=== PATIENT | male | born 1985 | race Caucasian/White ===

== ENCOUNTER 2017-06-29 02:41 | Emergency (ER) | payer BC ==
[~2017-06-29] VITALS: Ht 185.4 cm; Wt 86.2 kg
[2017-06-29 02:49] VITALS: BP_SYST 140
== END 2017-06-29 03:05 | disposition home or self-care (01) ==
LOC: SED 02:41
DX: J01.90 Acute sinusitis, unspecified (principal); J02.9 Acute pharyngitis, unspecified; R03.0 Elevated blood-pressure reading, without diagnosis of hypertension
CPT/HCPCS: 99283

== ENCOUNTER 2017-09-30 22:12 | Emergency (ER) | payer BC ==
[~2017-09-30] VITALS: Ht 177.8 cm; Wt 72.6 kg
[2017-09-30 22:17] VITALS: BP_SYST 129
[2017-09-30] MEDS ORDERED: AMIODARONE HCL 150 MG in D5W 97 ML IV ONE (22:30)
[2017-09-30] MEDS ORDERED: AMIODARONE HCL 150 MG/3ML VIAL ONE (22:48)
[2017-09-30 22:54] LABS: BASOPHILS # (AUTO) 0.1 K/uL (0.0-0.2); BASOPHILS % (AUTO) 0.8 % (0.0-2.0); EOSINOPHILS # (AUTO) 0.1 K/uL (0.0-0.4); EOSINOPHILS % (AUTO) 1.3 % (0.0-4.0); HEMATOCRIT 41.5 % (36-54); HEMOGLOBIN 14.2 g/dL (14.0-18.0); LYMPHOCYTES # (AUTO) 2.4 K/uL (1.0-5.5); LYMPHOCYTES % (AUTO) 35.2 % (20.5-51.5); MEAN CORPUSCULAR HEMOGLOBIN 30 pg (27-31); MEAN CORPUSCULAR HGB CONC 34 % (32-36); MEAN CORPUSCULAR VOLUME 88 fL (79.0-98.0); MONOCYTES # (AUTO) 0.6 K/uL (0.0-1.0); MONOCYTES % (AUTO) 8.8 % (1.7-9.3); NEUTROPHILS # (AUTO) 3.8 K/uL (1.8-7.7); NEUTROPHILS % (AUTO) 53.9 % (40.0-70.0); PLATELET COUNT (AUTO) 237 K/uL (130-430); RED BLOOD CELL COUNT(AUTO) 4.74 MIL/uL (4.2-6.2); RED CELL DISTRIBUTION WIDTH 11.9 % (9.0-15.0); WHITE BLOOD COUNT (AUTO) 6.9 K/uL (4.8-10.8)
[2017-09-30] MEDS ORDERED: NACL 0.9% 1,000 ML IV ONE (23:00)
[2017-09-30 23:08] LABS: CALCIUM 8.8 mg/dL (8.4-11.0); CREATININE 1.1 mg/dL (0.55-1.30); POTASSIUM 3.2 mmol/L (3.5-5.1)
[2017-09-30] MEDS ORDERED: POTASSIUM CHLORIDE 20 MEQ/PKT PACKET PO ONE (23:15)
[2017-09-30 23:17] LABS: ALBUMIN 3.6 g/dL (3.4-4.8); TOTAL BILIRUBIN 0.3 mg/dL (0.0-1.0)
[2017-10-01 00:55] VITALS: BP_SYST 116
== END 2017-10-01 00:55 | disposition home or self-care (01) ==
LOC: SED 22:12
DX: I48.91 Unspecified atrial fibrillation (principal); E87.6 Hypokalemia; I45.6 Pre-excitation syndrome; Z79.01 Long term (current) use of anticoagulants
CPT/HCPCS: 36415; 71045; 80053; 84484; 85025; 93005 ×2; 96361; 96374; 99285; J0282; J7030

== ENCOUNTER 2017-11-18 20:10 | Emergency (ER) | payer BC ==
[~2017-11-18] VITALS: Ht 185.4 cm; Wt 94.3 kg
[2017-11-18 20:10] VITALS: BP_SYST 119
[2017-11-18 20:42] LABS: BASOPHILS # (AUTO) 0.1 K/uL (0.0-0.2); BASOPHILS % (AUTO) 1.6 % (0.0-2.0); EOSINOPHILS # (AUTO) 0.2 K/uL (0.0-0.4); EOSINOPHILS % (AUTO) 2.3 % (0.0-4.0); HEMATOCRIT 43.9 % (36-54); HEMOGLOBIN 14.3 g/dL (14.0-18.0); LYMPHOCYTES # (AUTO) 2.6 K/uL (1.0-5.5); LYMPHOCYTES % (AUTO) 39.5 % (20.5-51.5); MEAN CORPUSCULAR HEMOGLOBIN 29 pg (27-31); MEAN CORPUSCULAR HGB CONC 33 % (32-36); MEAN CORPUSCULAR VOLUME 88 fL (79.0-98.0); MONOCYTES # (AUTO) 0.5 K/uL (0.0-1.0); NEUTROPHILS # (AUTO) 3.2 K/uL (1.8-7.7); NEUTROPHILS % (AUTO) 49.6 % (40.0-70.0); PLATELET COUNT (AUTO) 267 K/uL (130-430); RED BLOOD CELL COUNT(AUTO) 4.98 MIL/uL (4.2-6.2); WHITE BLOOD COUNT (AUTO) 6.6 K/uL (4.8-10.8)
[2017-11-18 20:54] LABS: ANION GAP 12 (5-15); CALCIUM 9.4 mg/dL (8.4-11.0); CHLORIDE 103 mmol/L (98-107); CREATININE 1.09 mg/dL (0.55-1.30); GLUCOSE 90 mg/dL (70-99); POTASSIUM 3.6 mmol/L (3.5-5.1); SODIUM SERUM 141 mmol/L (136-145); UREA NITROGEN, BLOOD 17 mg/dL (8-21)
[2017-11-18 21:00] LABS: GFR AFRICAN AMERICAN 100 mL/min (>90)
[2017-11-18 21:08] LABS: ALANINE AMINOTRANSFERASE 28 U/L (12-78); ALBUMIN 4.5 g/dL (3.4-4.8); ASPARTATE AMINOTRANSFERASE 14 U/L (10-37); THYROID STIMULATING HORMONE 2.68 uIu/mL (0.36-3.74); TOTAL BILIRUBIN 0.4 mg/dL (0.0-1.0)
[2017-11-18 21:50] VITALS: BP_SYST 116
[2017-11-18 22:34] LABS: BILIRUBIN,URINE NEGATIVE (NEGATIVE); BLOOD, URINE NEGATIVE (NEGATIVE); CLARITY/URINE CLEAR (CLEAR); COLOR,URINE YELLOW (YELLOW); GLUCOSE,URINE NEGATIVE (NEGATIVE); KETONES,URINE NEGATIVE (NEGATIVE); LEUKOCYTE ESTERASE ,URINE NEGATIVE (NEGATIVE); NITRITE, URINE NEGATIVE (NEGATIVE); PROTEIN URINE NEGATIVE (NEGATIVE); UROBILINOGEN,URINE 0.2 (0.2-1.0)
== END 2017-11-18 21:50 | disposition home or self-care (01) ==
LOC: SED 20:10
DX: R00.2 Palpitations (principal); Z86.79 Personal history of other diseases of the circulatory system
CPT/HCPCS: 36415; 71045; 80053; 81003; 84443-TC; 84484; 85025; 93005; 99285

== ENCOUNTER 2021-08-11 09:43 | Emergency (ER) | payer BC ==
[~2021-08-11] VITALS: Ht 185.4 cm; Wt 88.5 kg
[2021-08-11 09:49] VITALS: BP_SYST 129
[2021-08-11 10:25] LABS: BASOPHILS # (AUTO) 0.2 K/uL (0.0-0.2); EOSINOPHILS # (AUTO) 0.1 K/uL (0.0-0.4); HEMATOCRIT 40.2 % (36-54); HEMOGLOBIN 13.8 g/dL (14.0-18.0); LYMPHOCYTES # (AUTO) 0.8 K/uL (1.0-5.5); LYMPHOCYTES % (AUTO) 21.6 % (20.5-51.5); MEAN CORPUSCULAR HEMOGLOBIN 30 pg (27-31); MEAN CORPUSCULAR HGB CONC 34 % (32-36); MEAN CORPUSCULAR VOLUME 86 fL (79.0-98.0); MONOCYTES # (AUTO) 0.4 K/uL (0.0-1.0); MONOCYTES % (AUTO) 11.1 % (1.7-9.3); NEUTROPHILS # (AUTO) 2.3 K/uL (1.8-7.7); NEUTROPHILS % (AUTO) 60.3 % (40.0-70.0); PLATELET COUNT (AUTO) 208 K/uL (130-430); RED BLOOD CELL COUNT(AUTO) 4.69 MIL/uL (4.2-6.2); RED CELL DISTRIBUTION WIDTH 13.1 % (9.0-15.0)
[2021-08-11 10:30] LABS: WHITE BLOOD COUNT (AUTO) 3.8 K/uL (4.8-10.8)
[2021-08-11 10:39] LABS: ANION GAP 8 (5-15); CALCIUM 8.3 mg/dL (8.4-11.0); CHLORIDE 107 mmol/L (98-107); CREATININE 1.62 mg/dL (0.55-1.30); GLUCOSE 85 mg/dL (70-99); POTASSIUM 4.1 mmol/L (3.5-5.1); SODIUM SERUM 143 mmol/L (136-145); UREA NITROGEN, BLOOD 14 mg/dL (8-21)
[2021-08-11 10:42] LABS: GFR AFRICAN AMERICAN 62 mL/min (>90)
--- NOTE | 2021-08-11 11:00 | NUR ---
Patient to ER bed 8 to gown for evaluation. Side rails up. Report given to MALAIKA LOVELACE.
--- NOTE | 2021-08-11 11:05 | NUR ---
ER at bedside examining patient.
--- NOTE | 2021-08-11 11:10 | NUR ---
PT C/O PALPITAION WITH H/O WPW. PT HAS NO ACUTE RESP DISTRESS NOTED.
[2021-08-11] MEDS ORDERED: CALC-823 PO (12:04)
[2021-08-11 12:37] LABS: THYROID STIMULATING HORMONE 1.24 uIu/mL (0.36-3.74)
[2021-08-11 13:14] VITALS: BP_SYST 118
--- NOTE | 2021-08-11 13:14 | NUR ---
Patient given written and verbal discharge instructions and verbalizes understanding. ER MD discussed with patient the results and treatment provided. Patient in stable condition. ID arm band removed. NO Rx of given. Patient educated on pain management and to follow up with PMD. Pain Scale 0. Opportunity for questions provided and answered. Medication side effect fact sheet provided.
== END 2021-08-11 13:14 | disposition home or self-care (01) ==
LOC: SED 09:43
DX: R00.2 Palpitations (principal); E83.51 Hypocalcemia; Z79.899 Other long term (current) drug therapy
CPT/HCPCS: 36415; 80048; 84443; 84484; 85025; 93005; 99284